=== PATIENT | male | born 1940 | race Caucasian/White ===

== ENCOUNTER 2017-12-30 13:03 | Day surgery (SDC) | payer OTHER ==
[~2017-12-30] VITALS: Ht 177.8 cm; Wt 104.6 kg
[2017-12-30] MEDS ORDERED: Synthroid175 MCG PO (14:20)
[2017-12-30] MEDS ORDERED: POTCHL20ER PO (14:21)
[2017-12-30] MEDS ORDERED: FURO40 PO (14:21)
[2017-12-30] MEDS ORDERED: SALS500 PO (14:21)
[2017-12-30] MEDS ORDERED: Metformin HCl500 MG PO (14:22)
[2017-12-30] MEDS ORDERED: Isosorbide Mono30 MG PO (14:22)
[2017-12-30] MEDS ORDERED: CLARITIN10 MG PO (14:22)
[2017-12-30] MEDS ORDERED: VENL75ER PO (14:23)
[2017-12-30] MEDS ORDERED: VENL150ER PO (14:23)
[2017-12-30] MEDS ORDERED: ATOR20 PO (14:23)
[2017-12-30] MEDS ORDERED: INSULANPEN SC (14:24)
[2017-12-30] MEDS ORDERED: ASPI81CH PO (14:25)
[2017-12-30] MEDS ORDERED: Novolog100 UNIT/2 SC (14:25)
[2017-12-30] MEDS ORDERED: METO25ER PO (14:25)
[2017-12-30] MEDS ORDERED: DOXE25 PO (14:26)
[2017-12-30] MEDS ORDERED: FINA5 PO (14:26)
[2017-12-30] MEDS ORDERED: LOSA50 PO (14:26)
[2017-12-30] MEDS ORDERED: AMLO10 PO (14:26)
[2017-12-30] MEDS ORDERED: CLOP75 PO (14:27)
[2017-12-30] MEDS ORDERED: RANI150EL PO (14:28)
== END 2017-12-30 16:30 | disposition home or self-care (01) ==
LOC: ORSCSDS 13:03
PROVIDERS: Ophthalmology
PROC: 08BQ0ZZ Excision of Right Lower Eyelid, Open Approach (ICD-10-PCS; principal; 2017-12-30 15:00)
DX: H02.002 Unspecified entropion of right lower eyelid (principal); E11.9 Type 2 diabetes mellitus without complications; G47.33 Obstructive sleep apnea (adult) (pediatric); E66.9 Obesity, unspecified; Z68.33 Body mass index [BMI] 33.0-33.9, adult; Z79.01 Long term (current) use of anticoagulants; Z79.899 Other long term (current) drug therapy
CPT/HCPCS: 82947; J0171; J2250; J7040

== ENCOUNTER 2018-12-05 10:15 | Day surgery (SDC) | payer OTHER ==
[~2018-12-05] VITALS: Ht 177.8 cm; Wt 100.0 kg
[~2018-12-05 10:15] MED LIST: AMLO10 PO; ASPI81CH PO; ATOR20 PO; CLARITIN10 MG PO; CLOP75 PO; DOXE25 PO; FINA5 PO; FURO40 PO; INSULANPEN SC; Isosorbide Mono30 MG PO; LOSA50 PO; METO25ER PO; Metformin HCl500 MG PO; Novolog100 UNIT/2 SC; POTCHL20ER PO; RANI150EL PO; SALS500 PO; Synthroid175 MCG PO; VENL150ER PO; VENL75ER PO
[2018-12-05] MEDS ORDERED: NITR.4SL SL (10:38)
[2018-12-05] MEDS ORDERED: TAMS.4ER PO (10:39)
[2018-12-05] MEDS ORDERED: METF500 PO (10:40)
--- NOTE | 2018-12-05 16:26 | NUR ---
PT VERBALIZED UNDERSTANDING OF D/C INSTRUCTIONS. TR BAND REMOVED FROM RIGHT WRIST, RED CLOTH DOT DRESSING APPLIED. ARM BOARD AND SPLINT APPLIED TO RIGHT WRIST. SITE APPEARS SOFT NON TENDER WITH NO EXTERNAL BLEEDING. PT ENCOURAGED TO GET UP AND USE RESTROOM, REPORTS NEEDING TO SELF CATH. HE STATES THAT HE WOULD PREFER TO DO IT WHEN HE IS HOME. AMBULATES WITH STEADY GAIT. CANE IN LEFT HAND. VSS. ARRIVES TO DRIVE PT HOME. PERIPHERAL IV REMOVE FROM LFA WITH CATH INTACT, PRESSURE DRESSING APPLIED. NADN AT TIME OF DISPO. TAKEN OUT TO PRIVATE VEHICLE VIA W/C. ENCOURAGED PT TO FOLLOW UP WITH PROVIDER SCHEDULED.
== END 2018-12-05 16:30 | disposition home or self-care (01) ==
LOC: MHTC 10:15
DX: I25.10 Atherosclerotic heart disease of native coronary artery without angina pectoris (principal); R00.1 Bradycardia, unspecified; I25.2 Old myocardial infarction; I10 Essential (primary) hypertension; E78.5 Hyperlipidemia, unspecified; E11.9 Type 2 diabetes mellitus without complications; E66.01 Morbid (severe) obesity due to excess calories; E03.9 Hypothyroidism, unspecified; G47.33 Obstructive sleep apnea (adult) (pediatric); Z95.5 Presence of coronary angioplasty implant and graft; Z88.8 Allergy status to other drugs, medicaments and biological substances; Z68.33 Body mass index [BMI] 33.0-33.9, adult
CPT/HCPCS: 93458; 93571; 99152; 99153; C1769; C1887; C1894; J1644; J2250; J3010; J7030; Q9967

== ENCOUNTER 2023-08-16 15:43 | Emergency (ER) | payer OTHER ==
[~2023-08-16] VITALS: Ht 175.3 cm; Wt 95.2 kg
[~2023-08-16 15:43] MED LIST changes: +METF500 PO; +NITR.4SL SL; +TAMS.4ER PO
[2023-08-16 16:18] LABS: BASOPHILS ABSOLUTE AUTO 0.04 K/mm3 (0.00-0.23); BASOPHILS PERCENT AUTO 0 % (0-2); EOSINOPHILS ABSOLUTE AUTO 0.12 K/mm3 (0.00-0.68); EOSINOPHILS PERCENT AUTO 1 % (0-6); Hematocrit 40.7 % (37.0-53.0); Hemoglobin 13.9 g/dL (13.5-17.5); IMMATURE GRAN ABSOLUTE AUTO 0.14 K/mm3 (0.00-0.10); IMMATURE GRAN PERCENT AUTO 1 % (0-1); LYMPHOCYTES ABSOLUTE AUTO 2.34 K/mm3 (0.84-5.20); LYMPHOCYTES PERCENT AUTO 20 % (21-46); MONOCYTES ABSOLUTE AUTO 1.06 K/mm3 (0.16-1.47); MONOCYTES PERCENT AUTO 9 % (4-13); Mean Corpuscular HGB 30.5 pg (26.0-34.0); Mean Corpuscular HGB Conc 34.2 g/dL (31.5-36.5); Mean Corpuscular Volume 89 fL (80-100); Mean Platelet Volume 9.3 fL (9.1-12.4); NEUTROPHILS ABSOLUTE AUTO 8.26 K/mm3 (1.96-9.15); NEUTROPHILS PERCENT AUTO 69 % (41-73); Platelet Count 217 K/mm3 (150-400); RDW Coefficient Variation 13.1 % (11.7-14.2); RDW Standard Deviation 43.1 fL (35.1-46.3); Red Blood Cell Count 4.56 M/mm3 (4.30-5.90); White Blood Cell Count 11.96 K/mm3 (4.00-11.30)
[2023-08-16 16:33] LABS: Albumin/Globulin Ratio 0.7 (0.8-1.8); Bilirubin, Total 0.9 mg/dL (0.1-1.0); Bun/Creatinine Ratio 18.2 (12.0-20.0); Calcium, Blood 9.6 mg/dL (8.5-10.1); Creatinine, Blood 1.1 mg/dL (0.60-1.20); Globulin, Blood 4.2 g/dL (2.2-4.0); Potassium, Blood 3.7 mmol/L (3.5-5.5); Total Protein, Blood 7.2 g/dL (6.4-8.2)
[2023-08-16 17:02] LABS: Influenza A Negative (NEGATIVE); Influenza B Negative (NEGATIVE)
[2023-08-16 17:52] LABS: SARS-Cov-2 (COVID-19) PCR, MMC POSITIVE (NEGATIVE)
[2023-08-16 21:27] VITALS: BP 141/98
--- NOTE | 2023-08-17 00:59 | NUR ---
REVIEWED INFO FOR POSSIBLE ADMIT
== END 2023-08-16 21:45 | disposition home or self-care (01) ==
LOC: ER 15:43
PROVIDERS: Student in an Organized Health Care Education/Training Program
DX: U07.1 COVID-19 (principal); I48.20 Chronic atrial fibrillation, unspecified; I12.9 Hypertensive chronic kidney disease with stage 1 through stage 4 chronic kidney disease, or unspecified chronic kidney disease; E11.22 Type 2 diabetes mellitus with diabetic chronic kidney disease; N18.30 Chronic kidney disease, stage 3 unspecified; E78.5 Hyperlipidemia, unspecified; E03.9 Hypothyroidism, unspecified; K21.9 Gastro-esophageal reflux disease without esophagitis; F32.A Depression, unspecified; Z88.8 Allergy status to other drugs, medicaments and biological substances; Z79.899 Other long term (current) drug therapy; Z79.4 Long term (current) use of insulin; Z79.84 Long term (current) use of oral hypoglycemic drugs; Z79.82 Long term (current) use of aspirin; Z79.890 Hormone replacement therapy; Z79.02 Long term (current) use of antithrombotics/antiplatelets; Z87.891 Personal history of nicotine dependence
CPT/HCPCS: 71046; 80053; 85025; 87804; 87807; U0002

== ENCOUNTER 2025-02-24 15:56 | Inpatient (IN) | payer OTHER ==
[~2025-02-24] VITALS: Ht 175.3 cm; Wt 86.0 kg
[2025-02-24 16:20] LABS: BASOPHILS ABSOLUTE AUTO 0.01 K/mm3 (0.00-0.23); BASOPHILS PERCENT AUTO 0 % (0-2); EOSINOPHILS ABSOLUTE AUTO 0.02 K/mm3 (0.00-0.68); EOSINOPHILS PERCENT AUTO 0 % (0-6); Hematocrit 29.3 % (37.0-53.0); Hemoglobin 9.8 g/dL (13.5-17.5); IMMATURE GRAN ABSOLUTE AUTO 0.06 K/mm3 (0.00-0.10); IMMATURE GRAN PERCENT AUTO 1 % (0-1); LYMPHOCYTES ABSOLUTE AUTO 1.18 K/mm3 (0.84-5.20); LYMPHOCYTES PERCENT AUTO 18 % (21-46); MONOCYTES ABSOLUTE AUTO 0.59 K/mm3 (0.16-1.47); MONOCYTES PERCENT AUTO 9 % (4-13); Mean Corpuscular HGB Conc 33.4 g/dL (31.5-36.5); Mean Corpuscular Volume 96 fL (80-100); NEUTROPHILS ABSOLUTE AUTO 4.72 K/mm3 (1.96-9.15); NEUTROPHILS PERCENT AUTO 72 % (41-73); NRBC ABSOLUTE 0.00 K/mm3 (0.00-0.02); NRBC Auto 0.0 /100 WBC (0.0-0.2); Platelet Count 191 K/mm3 (150-400); RDW Coefficient Variation 13.6 % (11.7-14.2); RDW Standard Deviation 47.6 fL (35.1-46.3)
[2025-02-24 16:57] LABS: Magnesium, Blood 1.6 mg/dL (1.6-2.4); Thyroid Stimulating Hormone 1.45 uIU/mL (0.360-4.800)
[2025-02-24 16:58] LABS: Anion Gap 14.0 mmol/L (3-11); Blood Urea Nitrogen 34.0 mg/dL (8-24); CO2, Blood 23.0 mmol/L (21-32); Calcium, Blood 8.2 mg/dL (8.5-10.1); Chloride, Blood 100.0 mmol/L (98-108); Creatinine, Blood 2.28 mg/dL (0.60-1.20); Glucose, Blood 208.0 mg/dL (70-99); Potassium, Blood 3.6 mmol/L (3.5-5.5); Sodium, Blood 133.0 mmol/L (136-145)
[2025-02-24] MEDS ORDERED: NS 1,000 ML IV SCH (17:40)
[2025-02-24 18:57] LABS: Source, Urine Clean Catch
[2025-02-24 19:06] LABS: Bilirubin, Urine Neg (Neg); Color, Urine Yellow (P-Yellow); Glucose Qualitative, Urine 4+ (Neg); Ketones, Urine 1+ (Neg); Leukocyte Esterase, Urine Neg (Neg); Protein, Urine 1+ (Neg); Specific Gravity, Urine 1.010 (1.003-1.022); Urobilinogen, Urine NORM (Normal)
[2025-02-24] MEDS ORDERED: Ondansetron HCl 2 MG / ML 2ML Vial IV PRN (19:25)
[2025-02-24] MEDS ORDERED: Insulin Human Lispro 100 Units/ML 3ML Syringe SC SCH (21:00)
[2025-02-24 21:04] VITALS: BP 128/89
[2025-02-24] MEDS ORDERED: Darbepoetin (Pharmacy Consult) SC SCH (23:00)
[2025-02-24 23:06] VITALS: BP 115/71
[2025-02-25 03:31] VITALS: BP 116/77
[2025-02-25 04:50] LABS: BASOPHILS ABSOLUTE AUTO 0.01 K/mm3 (0.00-0.23); BASOPHILS PERCENT AUTO 0 % (0-2); EOSINOPHILS ABSOLUTE AUTO 0.08 K/mm3 (0.00-0.68); EOSINOPHILS PERCENT AUTO 1 % (0-6); Hematocrit 29.6 % (37.0-53.0); Hemoglobin 10.4 g/dL (13.5-17.5); IMMATURE GRAN ABSOLUTE AUTO 0.07 K/mm3 (0.00-0.10); IMMATURE GRAN PERCENT AUTO 1 % (0-1); LYMPHOCYTES ABSOLUTE AUTO 2.24 K/mm3 (0.84-5.20); LYMPHOCYTES PERCENT AUTO 29 % (21-46); MONOCYTES ABSOLUTE AUTO 0.98 K/mm3 (0.16-1.47); MONOCYTES PERCENT AUTO 13 % (4-13); Mean Corpuscular HGB Conc 35.1 g/dL (31.5-36.5); Mean Corpuscular Volume 93 fL (80-100); NEUTROPHILS ABSOLUTE AUTO 4.44 K/mm3 (1.96-9.15); NEUTROPHILS PERCENT AUTO 57 % (41-73); NRBC ABSOLUTE 0.00 K/mm3 (0.00-0.02); NRBC Auto 0.0 /100 WBC (0.0-0.2); Platelet Count 183 K/mm3 (150-400); RDW Coefficient Variation 13.5 % (11.7-14.2); RDW Standard Deviation 45.7 fL (35.1-46.3)
[2025-02-25 05:13] LABS: Magnesium, Blood 1.7 mg/dL (1.6-2.4)
[2025-02-25 05:14] LABS: Albumin, Blood 2.8 g/dL (3.4-5.0); Anion Gap 10 mmol/L (3-11); Blood Urea Nitrogen 27 mg/dL (8-24); CO2, Blood 28 mmol/L (21-32); Calcium, Blood 8.4 mg/dL (8.5-10.1); Chloride, Blood 100 mmol/L (98-108); Creatinine, Blood 2.04 mg/dL (0.60-1.20); Glucose, Blood 141 mg/dL (70-99); Phosphorus, Blood 3.3 mg/dL (2.5-4.9); Potassium, Blood 3.1 mmol/L (3.5-5.5); Sodium, Blood 135 mmol/L (136-145)
--- NOTE | 2025-02-25 07:05 | NUR ---
SUMMARY: PT AOX4, UP SBA W FWW. STRAIGHT CATH X2 DUE TO RETENTION. MEDICATED PER EMAR FOR FLANK PAIN. ABLE TO MAKE NEEDS KNOWN. CALL LIGHT WITHIN REACH AND UP TO CHAIR, CHAIR ALARM ON.
[2025-02-25] MEDS ORDERED: Potassium Chl 20MEQ/Water100ML 100 ML IV STA (07:11)
[2025-02-25] MEDS ORDERED: NS 250 ML IV PRN (07:15)
[2025-02-25 07:17] VITALS: BP 118/71
[2025-02-25] MEDS ORDERED: Isosorbide Mononitrate 60 MG TABCR PO SCH (09:00)
[2025-02-25] MEDS ORDERED: Darbepoetin Alfa In Albumn Sol 40 MCG/0.4 ML SC SCH (09:00)
--- NOTE | 2025-02-25 10:10 | NUR ---
24 HOUR URINE 24 HOUR URINE RESTARTED D/T BREAK NURSE DRAINING URINAL INTO TOILET AND NOT SEEING THE SIGN ON THE TOILET OR THE BROWN JUGS ON ICE IN THE BATHROOM. RESTARTED AT 0930. CARE ONGOING.
[2025-02-25] MEDS ORDERED: AMIODARONE HCL100 M1 PO (12:06)
[2025-02-25] MEDS ORDERED: AMIODARONE HCL100 M3 PO (12:08)
[2025-02-25] MEDS ORDERED: RANO500T PO ×2 (12:13→12:17)
[2025-02-25] MEDS ORDERED: ISOMON20 PO (12:14)
[2025-02-25] MEDS ORDERED: FAMO20 PO (12:14)
[2025-02-25] MEDS ORDERED: TAMS.4ER PO (12:14)
[2025-02-25] MEDS ORDERED: LEVSOD100 PO (12:15)
[2025-02-25] MEDS ORDERED: METO100ER PO (12:15)
--- NOTE | 2025-02-25 16:41 | NUR ---
NOTE PT ALERT AND OREITNED. FAMILY AT BEDSIDE. VSS. ZACARIAS PLACED D/T SIGNIFICANT RETENTION. AFTER ZACARIAS PLACED PT DRAINED 1700 ML IN AN HOUR. NO COMPLAINTS OF CRAMPING OR DISCOMFORT. PT BACK PAIN HAS DECREASED WELL. SPOUCE BROUGHT CPAP. R/T TO SET UP. 24 HOUR URINE INPROCESS. CARE ONGOING.
[2025-02-25 16:53] VITALS: BP 113/70
[2025-02-25 19:47] VITALS: BP 100/75
[2025-02-25 23:36] VITALS: BP 109/77
[2025-02-26 04:02] VITALS: BP 119/89
--- NOTE | 2025-02-26 04:37 | NUR ---
PATIENT IS ALERT AND ORIENTED X4. PATIENT IS ON TELE-RUNNING AFIB. ZACARIAS IN PLACE- COLLECTING 24 HR URINE. PATIENT USED CPAP DURING THE NIGHT. NO ACUTE CHANGES. BED IS IN LOW POSITION WITH THE WHEELS LOCKED. CALL LIGHT WITHIN REACH
[2025-02-26 05:01] LABS: Hematocrit 31.1 % (37.0-53.0); Hemoglobin 10.7 g/dL (13.5-17.5)
[2025-02-26 05:23] LABS: Albumin, Blood 2.9 g/dL (3.4-5.0); Anion Gap 8 mmol/L (3-11); Blood Urea Nitrogen 25 mg/dL (8-24); CO2, Blood 30 mmol/L (21-32); Calcium, Blood 8.0 mg/dL (8.5-10.1); Chloride, Blood 100 mmol/L (98-108); Creatinine, Blood 1.77 mg/dL (0.60-1.20); Glucose, Blood 124 mg/dL (70-99); Magnesium, Blood 1.6 mg/dL (1.6-2.4); Phosphorus, Blood 3.1 mg/dL (2.5-4.9); Potassium, Blood 3.2 mmol/L (3.5-5.5); Sodium, Blood 135 mmol/L (136-145)
[2025-02-26] MEDS ORDERED: Potassium Chloride 10 Meq Tablet SA PO ONE (06:45)
[2025-02-26 07:16] VITALS: BP 119/84
[2025-02-26 10:32] LABS: Protein, Urine Quantitative 23.1 mg/dL (0.0-11.9)
[2025-02-26 16:36] VITALS: BP 101/72
--- NOTE | 2025-02-26 17:36 | NUR ---
SHIFT SUMMARY PT IS A/OX4. 1 PERSON ASSIST WITH FWW. NO ACUTE CHANGES THROUGHOUT THIS SHIFT. ON TELE RUNNING AFIB IN THE 70'S. 24 HOUR URINE COLLECTED THIS MORNING. FAMILY AT BEDSIDE THROUGHOUT THIS AFTERNOON. PT IS PLEASANT AND COOPERATIVE WITH CARE AND CALLS APPROPRIATLEY USING THE CALL LIGHT.
[2025-02-26 20:50] VITALS: BP 101/72
[2025-02-26 23:30] VITALS: BP 111/90
[2025-02-27 03:42] VITALS: BP 119/83
--- NOTE | 2025-02-27 05:02 | NUR ---
NIGHT SUMMARY: PT AOX4. ZACARIAS IN PLACE AND DRAINING APPROPRIATELY. PT ABLE TO TURN SELF IN BED. DECLINES PAIN MEDICATION THIS EVENING. CALL LIGHT WITHIN REACH AND BED IN LOW POSITION. PT DECLINING CPAP OVERNIGHT SO 2L OXYMASK WAS GIVEN TO SUPPLEMENT DUE TO DROP IN O2 SAT WHILE SLEEPING.
[2025-02-27 07:23] LABS: Albumin, Blood 3.1 g/dL (3.4-5.0); Anion Gap 8 mmol/L (3-11); Blood Urea Nitrogen 20 mg/dL (8-24); CO2, Blood 32 mmol/L (21-32); Calcium, Blood 8.4 mg/dL (8.5-10.1); Chloride, Blood 100 mmol/L (98-108); Creatinine, Blood 1.96 mg/dL (0.60-1.20); Glucose, Blood 173 mg/dL (70-99); Phosphorus, Blood 3.1 mg/dL (2.5-4.9); Potassium, Blood 3.6 mmol/L (3.5-5.5); Sodium, Blood 136 mmol/L (136-145)
[2025-02-27 07:37] VITALS: BP 125/78
[2025-02-27] MEDS ORDERED: MASOPHEN325 M3 PO (11:20)
[2025-02-27] MEDS ORDERED: ELIQUIS2.5 MG PO (11:20)
[2025-02-27] MEDS ORDERED: ATOR40TA PO (11:21)
[2025-02-27] MEDS ORDERED: BUME1 PO (11:21)
[2025-02-27] MEDS ORDERED: KLOR-CON 1010 ME9 PO (11:22)
--- NOTE | 2025-02-27 12:36 | NUR ---
PATIENT DC'D TO HOME WITH . DC INSTRUCTIONS AND EDUCATION DISCUSSED WITH PATIENT AND COPY PROVIDED. RX MEDICATIONS FAXED TO [facility]. PATIENT DENIES ANY FURTHER QUESTIONS OR CONCERNS.
== END 2025-02-27 12:34 | disposition home health service (06) | DRG 683 ==
LOC: ER 15:56 → MEDS 19:20 → ER 20:29 → MEDS 20:29
PROVIDERS: Emergency Medicine; Internal Medicine Nephrology; Nurse Practitioner Acute Care; ADMIT Student in an Organized Health Care Education/Training Program
PROC: 0T9B70Z Drainage of Bladder with Drainage Device, Via Natural or Artificial Opening (ICD-10-PCS; principal; 2025-02-25)
PROC: 5A09357 Assistance with Respiratory Ventilation, Less than 24 Consecutive Hours, Continuous Positive Airway Pressure (ICD-10-PCS; 2025-02-25)
DX: N17.9 Acute kidney failure, unspecified (principal); E87.1 Hypo-osmolality and hyponatremia; N13.8 Other obstructive and reflux uropathy; I48.20 Chronic atrial fibrillation, unspecified; N18.30 Chronic kidney disease, stage 3 unspecified; I25.10 Atherosclerotic heart disease of native coronary artery without angina pectoris; D63.1 Anemia in chronic kidney disease; E11.22 Type 2 diabetes mellitus with diabetic chronic kidney disease; I12.9 Hypertensive chronic kidney disease with stage 1 through stage 4 chronic kidney disease, or unspecified chronic kidney disease; E03.9 Hypothyroidism, unspecified; G47.33 Obstructive sleep apnea (adult) (pediatric); E87.70 Fluid overload, unspecified; N40.1 Benign prostatic hyperplasia with lower urinary tract symptoms; R33.8 Other retention of urine; E78.5 Hyperlipidemia, unspecified; F32.A Depression, unspecified; E86.0 Dehydration; R94.31 Abnormal electrocardiogram [ECG] [EKG]; N25.81 Secondary hyperparathyroidism of renal origin; R60.0 Localized edema; E66.01 Morbid (severe) obesity due to excess calories; E83.51 Hypocalcemia; E87.6 Hypokalemia; S01.01XA Laceration without foreign body of scalp, initial encounter; W01.0XXA Fall on same level from slipping, tripping and stumbling without subsequent striking against object, initial encounter; Z88.8 Allergy status to other drugs, medicaments and biological substances; Y92.008 Other place in unspecified non-institutional (private) residence as the place of occurrence of the external cause; Z79.4 Long term (current) use of insulin; Z79.84 Long term (current) use of oral hypoglycemic drugs; Z79.890 Hormone replacement therapy; Z79.02 Long term (current) use of antithrombotics/antiplatelets; Z79.82 Long term (current) use of aspirin; Z87.891 Personal history of nicotine dependence; Z68.26 Body mass index [BMI] 26.0-26.9, adult
CPT/HCPCS: 36415; 70450; 71045; 72170; 76770; 80048; 80069; 82330; 82607; 82947; 83735; 84156; 84439; 84443; 85014; 85018; 85025; 90715; 93005; 93010; 94762; 97116; 97161; A9270; J0881; J3480; J7030; J7050

== ENCOUNTER → 2025-03-22 | Outpatient (CLI) | payer OTHER ==
[~2025-03-22] MED LIST changes: +AMIODARONE HCL100 M1 PO; +AMIODARONE HCL100 M3 PO; +ATOR40TA PO; +BUME1 PO; +ELIQUIS2.5 MG PO; +FAMO20 PO; +ISOMON20 PO; +KLOR-CON 1010 ME9 PO; +LEVSOD100 PO; +MASOPHEN325 M3 PO; +METO100ER PO; +RANO500T PO
[2025-03-22 14:50] LABS: Albumin, Blood 3.3 g/dL (3.4-5.0); Anion Gap 7 mmol/L (3-11); Blood Urea Nitrogen 23 mg/dL (8-24); CO2, Blood 30 mmol/L (21-32); Calcium, Blood 8.9 mg/dL (8.5-10.1); Chloride, Blood 104 mmol/L (98-108); Creatinine, Blood 1.83 mg/dL (0.60-1.20); Glucose, Blood 162 mg/dL (70-99); Phosphorus, Blood 3.7 mg/dL (2.5-4.9); Potassium, Blood 4.0 mmol/L (3.5-5.5); Sodium, Blood 137 mmol/L (136-145)
== END | disposition home or self-care (01) ==
LOC: LAB 12:19 → LAB SHORT 12:19
PROVIDERS: Internal Medicine Nephrology
DX: N18.30 Chronic kidney disease, stage 3 unspecified (principal); E29.1 Testicular hypofunction; R76.9 Abnormal immunological finding in serum, unspecified; R94.6 Abnormal results of thyroid function studies
CPT/HCPCS: 80069

== ENCOUNTER 2025-06-03 09:03 | Emergency (ER) | payer OTHER ==
[~2025-06-03] VITALS: Ht 175.3 cm; Wt 83.9 kg
[2025-06-03] MEDS ORDERED: Lidocaine 4% 1 Patch TOP ONE (09:25)
[2025-06-03] MEDS ORDERED: Morphine Sulfate 20 MG/1ML 1 ML Oral Syringe PO ONE (09:30)
[2025-06-03] MEDS ORDERED: JARDIANCE10 MG PO (10:05)
[2025-06-03] MEDS ORDERED: LUTEIN20 MG PO (10:08)
[2025-06-03] MEDS ORDERED: VENL75ER (10:08)
[2025-06-03] MEDS ORDERED: FISH OIL 1,0001 EA10 PO (10:09)
[2025-06-03] MEDS ORDERED: VITAMIN D325 MC3 (10:09)
[2025-06-03] MEDS ORDERED: LIDO700A20 TOP (11:12)
[2025-06-03] MEDS ORDERED: Morphine Sulfat15 MG PO (11:12)
[2025-06-03 11:40] VITALS: BP 126/97
== END 2025-06-03 11:49 | disposition home or self-care (01) ==
LOC: ER 09:03
DX: S22.42XA Multiple fractures of ribs, left side, initial encounter for closed fracture (principal); R53.1 Weakness; I48.91 Unspecified atrial fibrillation; E11.22 Type 2 diabetes mellitus with diabetic chronic kidney disease; I12.9 Hypertensive chronic kidney disease with stage 1 through stage 4 chronic kidney disease, or unspecified chronic kidney disease; N18.30 Chronic kidney disease, stage 3 unspecified; E03.9 Hypothyroidism, unspecified; E78.5 Hyperlipidemia, unspecified; I25.9 Chronic ischemic heart disease, unspecified; G47.33 Obstructive sleep apnea (adult) (pediatric); Z87.891 Personal history of nicotine dependence; Z88.8 Allergy status to other drugs, medicaments and biological substances; Z79.4 Long term (current) use of insulin; Z79.890 Hormone replacement therapy; Z79.01 Long term (current) use of anticoagulants; Z79.899 Other long term (current) drug therapy; W18.30XA Fall on same level, unspecified, initial encounter
CPT/HCPCS: 71101; 93005; 93010; 99284-25; A9270

== ENCOUNTER 2025-06-07 15:34 | Inpatient (IN) | payer OTHER | END 2025-06-09 14:47 | disposition home health service (06) | DRG 682 | LOC: ER 15:34 → MEDS 20:10 | PROVIDERS: ADMIT Student in an Organized Health Care Education/Training Program | DX: N17.9 Acute kidney failure, unspecified (principal); J96.01 Acute respiratory failure with hypoxia; S22.42XA Multiple fractures of ribs, left side, initial encounter for closed fracture; E87.1 Hypo-osmolality and hyponatremia; M62.82 Rhabdomyolysis; I12.9 Hypertensive chronic kidney disease with stage 1 through stage 4 chronic kidney disease, or unspecified chronic kidney disease; N18.30 Chronic kidney disease, stage 3 unspecified; E78.5 Hyperlipidemia, unspecified; E03.9 Hypothyroidism, unspecified; K21.9 Gastro-esophageal reflux disease without esophagitis; F32.A Depression, unspecified; G47.00 Insomnia, unspecified; M19.90 Unspecified osteoarthritis, unspecified site; I48.91 Unspecified atrial fibrillation; E11.22 Type 2 diabetes mellitus with diabetic chronic kidney disease; I25.10 Atherosclerotic heart disease of native coronary artery without angina pectoris; N40.1 Benign prostatic hyperplasia with lower urinary tract symptoms; R33.8 Other retention of urine; G47.33 Obstructive sleep apnea (adult) (pediatric); D63.1 Anemia in chronic kidney disease; Z98.890 Other specified postprocedural states; Z87.891 Personal history of nicotine dependence; Z87.81 Personal history of (healed) traumatic fracture; Z91.81 History of falling; Z79.4 Long term (current) use of insulin; Z79.84 Long term (current) use of oral hypoglycemic drugs; Z79.01 Long term (current) use of anticoagulants; Z79.890 Hormone replacement therapy; Z79.899 Other long term (current) drug therapy; Z88.8 Allergy status to other drugs, medicaments and biological substances; W18.30XA Fall on same level, unspecified, initial encounter ==